=== PATIENT | male | born 1955 | race Caucasian/White ===

== ENCOUNTER 2017-04-21 16:40 | Emergency (ER) | payer MEDICARE, OTHER ==
[~2017-04-21] VITALS: Ht 160 cm; Wt 78.0 kg
[2017-04-21 16:43] VITALS: Ht 160 cm; Wt 78.0 kg
[2017-04-21] MEDS ORDERED: METHYLPREDNISOLONE 125 MG INJ IV ONE (20:00)
[2017-04-21] MEDS ORDERED: morphine 2 MG INJ IV ONE (20:00)
[2017-04-21] MEDS ORDERED: ONDANSETRON 4 MG INJ IV ONE (20:00)
--- NOTE | 2017-04-21 21:10 | RADRPT ---
PROCEDURE: CT lumbar spine without contrast CLINICAL INDICATION: Low back pain TECHNIQUE: CT scan of the lumbar spine was performed on a high-resolution multi-detector CT scanne r. No IV contrast was administered. Coronal and sagittal reformatted images were obtained from the axial source images. Images were reviewed on a high-resolution PACS workstation. Exam CTDI = 24.55 mGy and the DLP = 893.36 mGy-cm. DICOM images are available. One or more of the following dose reduction techniques were used: Automated exposure control. Adjustment of the mA and/or kV according to patient size. Use of iterative reconstruction technique. COMPARISON: None available FINDINGS: There is straightening of the lumbar lordosis. Alignment remains intact. No acute fracture or disl ocation is seen. The vertebral body heights and intervertebral disk heights are all well preserved. Posterior elements structures are intact. Small ventral osteophytes are seen at L2-L3 and L3-L4. S mall disc bulges are seen at L3-L4 and L4-L5 without central canal or neural foraminal stenosis. The re is mild facet arthropathy at L4-L5 and L5-S1. The paraspinous soft tissues are unremarkable. No mass, hematoma, or other soft tissue abnormality is seen. Partially imaged approximately 1.5 cm jorge cification in the upper pole left kidney which appears to be composed of numerous tiny calcification s. IMPRESSION: 1. No acute fracture or traumatic malalignment. 2. Mild lumbar spondylosis/degenerative enthesopathy, as described above. 3. The central canal and neural foramina are adequately patent. 4. Partially imaged 1.5 cm calcification in the upper pole left kidney. RPTAT: HHO .Nabeel Ramirez MD, Date Time Electronically viewed and signed by .Nabeel Ramirez MD, MD on 04/21/2017 21:09 .O/
[2017-04-21 21:13] VITALS: BP 92/50; PULSE 51; RESP 16; TEMP 98.2
[2017-04-21] MEDS ORDERED: METH750T93 PO (21:35)
[2017-04-21] MEDS ORDERED: IBUP800T25 PO (21:35)
[2017-04-21] MEDS ORDERED: HYDR-902 PO (21:35)
--- NOTE | 2017-04-21 21:42 | ERD ---
ER Documentation Chief Complaint Chief Complaint GERD/CP, CHASTITY FLANK PAINS X 3 DAYS HPI This is a 62-year-old male complains of right low back pain with radiation down the buttocks to the lateral and top of the right thigh for the past 3 days. He says he has had this for years and he is having a flareup. 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 He does prolonged sitting. There is no leg swelling or edema to the patient has no loss of bowel or bladder no weakness or numbness no saddle anesthesia no fall or trauma. ROS All systems reviewed and are negative except as per history of present illness. Medications Home Meds Active Scripts Ibuprofen* (Motrin*) 800 Mg Tab, 800 MG PO Q6H Y for PAIN AND OR ELEVATED TEMP, #30 TAB Prov:LEKKOS,AZULSTOLOS A. DO 04/21/17 Methocarbamol* (Robaxin*) 750 Mg Tablet, 750 MG PO TID, #20 TAB Prov:LEKKOS,APOSTOLOS A. DO 04/21/17 Hydrocodone/Acetaminophen (Revillo 10-325 Tablet) 1 Each Tablet, 1 TAB PO Q6H Y for PAIN, #20 TAB Prov:LEKKOS,APOSTOLOS A. DO 04/21/17 Allergies Allergies: Coded Allergies: No Known Allergy (Unverified , 04/21/17) PMhx/Soc Hx Cardiac Disorders: Yes (HTN, cholesterol) Hx Miscellaneous Medical Probl: Yes (kidney stones) Hx Alcohol Use: Yes (occasional) Hx Substance Use: No Hx Tobacco Use: Yes (2pack/ day; smoker since 16yo) Smoking Status: Current every day smoker FmHx Family History: No coronary disease Physical Exam Vitals Vital Signs Date Time Temp Pulse Resp B/P Pulse Ox O2 Delivery O2 Flow Rate FiO2 04/21/17 21:13 98.2 51 16 92/50 96 Room Air 04/21/17 16:43 98.1 67 18 119/75 99 Physical Exam Const: Well-developed, well-nourished Head: Atraumatic, normocephalic Eyes: Normal Conjunctiva, PERRLA, EOMI, normal sclera, no nystagmus ENT: Normal External Ears, Nose and Mouth, moist mucus membranes. Neck: Full range of motion. No meningismus, no lymphadenopathy. Resp: Clear to auscultation bilaterally, no wheezing, rhonchi, rales Cardio: Regular rate and rhythm, no murmurs, S1 S2 present Abd: Soft, non tender x 4, non distended. Normal bowel sounds, no guarding or rebound, no pulsitile abdominal masses or bruits Skin: No petechiae or rashes, no ecchymosis , no maculopapular rash Back: Tender and reproducible pain to the right low back. Negative straight leg test bilaterally at 75 Ext: No cyanosis, or edema, FROM x 4, normal inspection, neurovascularly intact x 4 Neur: Awake and alert, STR 5/5 x 4, sensation intact x 4, no focal findings, cerebellum intact Psych: Normal Mood and Affect Results 24 hrs Current Medications Medications (Trade) Dose Ordered Sig/Vipin Route PRN Reason Start Time Stop Time Status Last Admin Dose Admin Morphine Sulfate (morphine) 8 mg ONCE ONCE IV 04/21/17 20:00 04/21/17 20:01 DC 04/21/17 19:57 Ondansetron HCl (Zofran Inj) 4 mg ONCE ONCE IV 04/21/17 20:00 04/21/17 20:01 DC 04/21/17 19:57 Methylprednisolone Sodium Succinate (Solu-Medrol) 125 mg ONCE ONCE IV 04/21/17 20:00 04/21/17 20:01 DC 04/21/17 19:57 Procedures/MDM EKG: Rate/Rhythm: Normal sinus rhythm incomplete right bundle branch block QRS, ST, QT: NORMAL MO, QRS, QT] Impression: NORMAL EKG PROCEDURE: CT lumbar spine without contrast CLINICAL INDICATION: Low back pain TECHNIQUE: CT scan of the lumbar spine was performed on a high-resolution multi-detector CT scanner. No IV contrast was administered. Coronal and sagittal reformatted images were obtained from the axial source images. Images were reviewed on a high-resolution PACS workstation. Exam CTDI = 24.55 mGy and the DLP = 893.36 mGy-cm. DICOM images are available. One or more of the following dose reduction techniques were used: Automated exposure control. Adjustment of the mA and/or kV according to patient size. Use of iterative reconstruction technique. COMPARISON: None available FINDINGS: There is straightening of the lumbar lordosis. Alignment remains intact. No acute fracture or dislocation is seen. The vertebral body heights and intervertebral disk heights are all well preserved. Posterior elements structures are intact. Small ventral osteophytes are seen at L2-L3 and L3-L4. Small disc bulges are seen at L3-L4 and L4-L5 without central canal or neural foraminal stenosis. There is mild facet arthropathy at L4-L5 and L5-S1. The paraspinous soft tissues are unremarkable. No mass, hematoma, or other soft tissue abnormality is seen. Partially imaged approximately 1.5 cm calcification in the upper pole left kidney which appears to be composed of numerous tiny calcifications. IMPRESSION: 1. No acute fracture or traumatic malalignment. 2. Mild lumbar spondylosis/degenerative enthesopathy, as described above. 3. The central canal and neural foramina are adequately patent. 4. Partially imaged 1.5 cm calcification in the upper pole left kidney. RPTAT: HHO .Nabeel Ramirez MD, Date Time Electronically viewed and signed by .Nabeel Ramirez MD, on 04/21/2017 21:09 .O/ CC: JOSE M PATEL DO The patient's pain is better. He is likely having some radiculopathy from a pinched nerve from the lumbar musculature or gluteus musculature no evidence of bulging disc or other acute lumbar pathology on CT scan. We will discharge is symptomatic control Departure Diagnosis: Primary Impression: Lumbar radiculopathy Additional Impression: Low back pain Chronicity: acute Back pain laterality: right Sciatica presence: with sciatica Sciatica laterality: sciatica of right side Qualified Code: M54.41 - Acute right-sided low back pain with right-sided sciatica Condition: Stable Patient Instructions: Back Pain (Acute Or Chronic), Back Pain W/ Sciatica JOSE M PATEL DO Apr 21, 2017 21:42
== END 2017-04-21 21:50 | disposition home or self-care (01) ==
LOC: E/R 16:40
DX: M54.16 Radiculopathy, lumbar region (principal); I10 Essential (primary) hypertension; F17.210 Nicotine dependence, cigarettes, uncomplicated
CPT/HCPCS: 36415; 72131; 96374; 96375; 99285; J2270; J2405; J2930; 93005